=== PATIENT | female | born 1960 | race Caucasian/White ===

== ENCOUNTER 2019-06-29 18:10 | Inpatient (IN) | payer OTHER ==
[~2019-06-29] VITALS: Ht 157.5 cm; Wt 70.9 kg
[~2019-06-29 18:10] MED LIST: ADVAIR 250-501 EACH INH; DUONEB 2.5-0.5 M3 ML INH; FLEXERIL PO; HYDROCODON-ACE1 EAC5; HYDROCODON-ACE1 EAC8; NICOTINE TRANSD21 M1 TRANSDERM; NORCO 10-325 T1 EACH PO; OXYCODONE HCL15 MG PO; OXYCONTIN20 M1 PO; OXYCONTIN20 MG; PERCOCET 5-3251 EACH PO; PHENERGAN 25 MG25 M1 PO; PREDNISONE 20 M20 M1 PO; PREDNISONE 20 M20 MG PO; VENTOLIN HFA 1818 GM INH; ZPAK PO
--- NOTE | 2019-06-29 20:06 | NUR ---
ARRIVES TO FLOOR VIA CART ACCOMPNIED BY [facility] A 59 YEAR OLD FEMALE. ARRIVES FROM [facility] WITH REPORTED RECENT HX OF OPIATE ABUSE AND RECENT CVA-MENTAL STATUS CHANGES INCLUDING INCREASED CONFUSION,IMPAIRED IMPULSE CONTROL AND AGITATION-INTERMITENTLY UNCOOPERATIVE AND COMBATIVE WITH CARES ALTERNATING WITH EPISODES OF SOMULENCE. PT IS ALERT AND ORIENTED TO PERSON AND PLACE ON ADMIT-IDENTIFIES DATE JULY 03 BUT IS AWARE IT IS FRIDAY. RESPONSES AT TIMES RELEVENT TO QUESTIONS ASKED AND AT TIMES CONVERSATION IS CIRCUMSTANTIAL AND DISORGANIZED. SPEECH MILDLY PRESSURED AND SLURRED. ORIENTED TO ROOM AND UNIT, VS OBTAINED AND BP 142/83 P-94 TEMP 98.2. NO NOTED SKIN BREAKDOWN-SOME BRUSING TO FOREARMS.ANTICUBITAL AREA BILAT WHICH APPEAR TO BE OLD IV SITES. FULL SET DENTURES. 02 SAT 98 PERCENT ON RA. DAUGHTER NATALIA CASTREJON CONTACTED AND CONSENTS OBTAINED VIA PHONE-INFORMATION RE UNIT SCHEDULE AND VISITING HOURS WELL CONFIDENTIALITY CODE PROVIDED. PT DENIES SI/SH/HI-LABILE MOOD-TEARFUL X1 DURING ADMIT INTERVIEW. CONTACTED FOR ADMIT ORDERS. PT DENIES PAIN/DISCOMFORT ON ADMIT.
[2019-06-29 20:15] VITALS: BP 140/73
[2019-06-30 00:41] VITALS: BP 140/73
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
--- NOTE | 2019-06-30 04:24 | NUR ---
PATIENT HAS BEEN UP ALL NIGHT. THE PATIENT HAS SPENT ALOT OF TIME IN THE DINING ROOM MOVING CHAIRS AND SCATTERING TRASH AND CUPS AROUND THE ROOM. SHE DID SIT FOR AWHILE WITH A MALE PEER WHO WAS UP AND THE LYNNE DOMINGUEZ HAS BEEN TRYING TO KEEP THEM ENGAGED IN CONVERSATION. PATIENT STANDS UP AND WALKS TO DIFFERENT CHAIRS IN THE ROOM AND SITS AND THEN GETS UP AGAIN AND MOVES ON. PATIENT WAS GIVEN A COMB AND SHE DID COMB HER HAIR. PATIENT HAS BEEN DRIPPING WATER FROM HER MOUTH IT SOMETIMES RUNS OUT RIGHT SIDE OF MOUTH. CONTINUING TO MONITOR.
--- NOTE | 2019-06-30 06:29 | NUR ---
PATIENT ASKED FOR A SHOWER TODAY. SHE STARTED TAKING HER CLOTHES OFF IN THE HALLWAY AND HAD TO BE STOPPED. ANGELICA BATISTA ASSISTED HER IN WASHING HER HAIR AND PUTTING ON NEW CLOTHES. PATIENT IS UP IN THE DINING ROOM AT THIS TIME.
--- NOTE | 2019-06-30 14:38 | NUR ---
Care assumed of patient at 0715: Patient alert to name when it is called. Confused and forgetful. Patient has slurred and mumbled speech. Patient is able to write clearly and make wants/needs known. Patient has disrobed multiple times this shift and requires re-direction and assistance dressing. Patient has been incontinent of bowel and bladder this shift. Patient observed standing in her shower with dirty brief, clothing and linens in the shower with her. Patient needing multiple re-directions throughout the shift. Patient evaluated by . Diet changed to puree, honey thickened liquids, heart healthy. Patient continues to want to drink excessively. Patient spilling fluids on the floor, spitting out food. Pills were provided crushed due to coughing and difficulty swallowing. Chest x-ray was completed this AM. X-ray negative. CBC is ordered for 07/01/19. Multiple family members visited this AM. Only 2 family members allowed to visit at one time. Patient became more disoriented, unsteady, drooling by mid morning. Daughter reported concerns about patient being over medicated and having a poor reaction to prescribed Haldol. ALEX Cleary notified. Orders placed to d/c Haldol, start Risperdal, start Cogentin PRN for EPS. Patient provided first dose of Cogentin PRN. Patient was fed lunch. No s/s of pain or discomfort. Patient has been napping this afternoon.
--- NOTE | 2019-06-30 16:32 | NUR ---
SW met with pt briefly and she wanted Sw to talk with her instead.
[2019-06-30 16:34] VITALS: BP 150/96
--- NOTE | 2019-06-30 23:15 | NUR ---
PATIENT HAS BEEN UP AND WALKING AND VERY RESTLESS. PATIENT NOT TALKING AND WHEN SHE DOES IT IS NOT UNDERSTANDABLE. GAVE PATIENT PENCIL AND PAPER TO WRITE ON AND ANSWER QUESTIONS. SHE IS UNABLE TO PAY ATTENTION LONG ENOUGH TO DO THIS AT THIS TIME. HER HALDOL WAS DC'D TODAY AND SHE WAS STARTED ON RISPERIODONE 0.5MG AT HS. SHE HAD TAKEN THIS BEFORE SHE CAME IN. PATIENT ALSO GIVEN TYLENOL 650MG AN HOUR LATER FOR BACK PAIN. HELPED POSITION PATIENT IN BED TO TAKE PRESSURE OFF HER BACK. PATIENT NOT STAYING IN BED. OLANZAPINE 2.5MG PO GIVEN FOR AGGITATION. SHE WALKS THE YANG AND SITS DOWN ON THE FLOOR WHEN SHE GETS TIRED. AFTER SITTING AND TRYING TO HELP THE PATIENT 4 DIFFERENT TIMES TO STAY IN BED AND MAKE SURE SHE WAS COMFORTABLE, HAVE BROUGHT PATIENT OUT TO THE DINING ROOM. SHE IS LAYING ON COUCH AT THIS TIME. DON'T KNOW IF SHE JUST FEELS MORE COMFORTABLE WITH PEOPLE AROUND OR WHAT. HER VITAL SIGNS HAVE BEEN STABLE. PATIENT APPEARS MORE SEDATED SINCE TAKING THE RISPERIDONE. SHE HAS A STRAIGHT AHEAD STARE THAT DOES NOT SEEM TO BE CONCENTRATED ON ANYTHING AND SHE MOVES SLOWLY. SHE CONTINUES TO DROOL WITH LIQUIDS. SHE IS ON HONEY THICK CONSISTANCY AND PUREED DIET. PATIENT NEEDS SOMEONE TO FEED HER. PATIENT HAD ICECREAM FOR HS SNACK TONIGHT. SHE WAS GIVEN HONEY THICKENED WATER AND APPLE JUICE TONIGHT ALSO. PATIENT IS TAKING PILLS WHOLE AT THIS TIME. PATIENT IS BACK UP AND WALKING IN THE DINING ROOM. AUDITING CODER'S ARE HELPING HER TO SIT IN A CHAIR. DAUGHTER DALTON CALLED EARLIER THIS EVENING TO CHECK ON PATIENT. CONTINUING TO MONITOR.
[2019-07-01 00:40] VITALS: BP 132/80
--- NOTE | 2019-07-01 00:51 | NUR ---
PATIENT WITH C/O OF LEFT LEG/THIGH PAIN. APPEARS TO BE SHOOTING PAIN DOWN HER LEG FROM BACK. THE LEG WENT OUT ON HER 2X TONITE. GOT PATIENT BACK TO BED. ASSESSED THE LEG AND CHECKED SARIKA'S SIGN. NO INDICATION OF BLOOD CLOT. MASSAGED LEG AND ADJUSTED BED TO HE COMFORT LEVEL. PATIENT HAD JUST HAD TYLENOL. PATIENT VERY SLEEPY LOOKING. SHE DID HAVE SOME RELIEF AND IS SLEEPING AT THIS TIME. CONTINUING TO MONITOR.
--- NOTE | 2019-07-01 05:16 | NUR ---
PATIENT HAS SLEPT FOR ABOUT 3.5 HOURS. SHE DID NEED ASSISTANCE IN TOILETING AND DID NOT MAKE IT TO THE RESTROOM IN TIME WITH BANKING CENTER MANAGER'S AND VOIDED URINE ON THE FLOOR. WE CLEANED HER UP AND SHE WENT BACK TO SLEEP FOR AN HOUR AND IS NOW UP SITTING IN THE DINING ROOM. SHE IS ACTING AND LOOKING SEDATED. SHE IS UNSTEADY ON HER FEET AND IS ASSIST X 1-2 TONIGHT. PATIENT IS DENYING PAIN. SHE LIKES TO KEEP HER PLUM COLORED ROBE WITH HER WHEN SHE LEAVES THE ROOM. SHE HAD A LAB DRAW THIS AM FOR CBC. PATIENT IS CALM AND NOT UP WALKING AROUND. SHE HAS A NONINTENTIONAL STARE AND APPEARS NOT TO BE LISTENING WHEN YOU TALK BUT SHE IS JUST SLOW TO PROCESS AND REACT/RESPOND. PATIENT CALM AND COOPERATIVE AT THIS TIME.
[2019-07-01 05:30] LABS: HEMATOCRIT 43.1 % (37.0-47.0); HEMOGLOBIN 14.3 gm/dL (12.0-15.0); MCH 29.8 pg (26.0-34.0); MCHC 33.1 g/dL (28.0-37.0); RBC 4.78 mil/uL (4.20-5.00); RDW 14.5 % (10.5-14.5); WBC 11.9 thou/uL (4.0-11.0)
[2019-07-01 08:59] VITALS: BP 147/67
--- NOTE | 2019-07-01 12:35 | NUR ---
Assess due to notification of swallow difficulty in Treatment Team Meeting. Admit to [facility] unit with altered mental status. Hx cva's, htn, HLD, and chronic pain syndrome with +opiate use. ST has assessed and downgraded pt to puree, and honey thick liquid diet. Ensure pudding already ordered and pt eating these. Mod/severe oral/pharyngeal dysphagia noted and treatment with vital stim. Unknown wt hx, current BMI is adequate 28.7. Did note 1 glucose level of 184, no hx diabetes indicated. May want to assess few accuchecks. Otherwise low nutrition risk
--- NOTE | 2019-07-01 12:39 | NUR ---
Pt had BG 184, no hx diabetes indicated. Recommend trend few accucheck readings.
--- NOTE | 2019-07-01 13:29 | NUR ---
[place]'s daughter called; she was asking about [place] being discharged. The daughter is concerned about payment as [place] has medicare pending. She was wanting to know if [place] would be discharging today. I explained to her that the SW was sending out referrals. The daughter wanted to know "When will you here something?" I explained the SW would be in contact with her about placement.
--- NOTE | 2019-07-01 16:38 | NUR ---
Tiago spoke wiht g daughter in AM and PM. She requestd that this referral for SNF be sent to [facility]. This was completed and reported to Dr Landin and nursing staff. This d/c can happen as soon as there is placement.
--- NOTE | 2019-07-01 19:02 | NUR ---
PT ALERT AND ORIENTED TIMES THREE, WITH PERIODS OF CONFUSION. SLURRED SPEECH. TEARFUL SOME PART OF THE SHIFT. VSS, PT DENIES SI/HI/AV/HV. PT TOLERATES MEDS AND MEALS. PT UP AB KARISHMA WITH STEADY GAIT. PT ATTENDED SOME ONE GROUP THIS SHIFT.
[2019-07-01 21:06] VITALS: BP 153/90
--- NOTE | 2019-07-02 05:28 | NUR ---
The pt. was in the day area in the evening walking around others, not talking words. She was compliant with honey thickened liquids and purreed snack. She was compliant with HS medications which were crushed in snack. At 0115 she was awake and walking in the hallway and day area, and was given Melatonin 10 mg. po. It was effective as she slept well afterwards.
[2019-07-02 08:15] VITALS: BP 133/84
[2019-07-02 09:30] VITALS: BP 133/84
--- NOTE | 2019-07-02 14:59 | NUR ---
[facility] today, and [facility] denied placement, sent referral to [facility], [facility].
--- NOTE | 2019-07-02 16:14 | NUR ---
Assumed care of patient this am from casino shift manager. Patient was in the milieu in a wheel chair for assessment. Vital signs stable, breath sounds clear and diminished in the bases. Bowl sounds present. Patient speaks with a slurred speach and was concerned that the care she is recieving is not focused on the cva. Patients daughter called this am and expressed that she is working on finding a facility that would have care more focused to patients needs. Patient was very excited and happy to hear that her daughter had called and was very grateful to hear that she would be visiting today.
[2019-07-02 19:31] VITALS: BP 120/56
[2019-07-02 21:50] VITALS: BP 105/70
[2019-07-02 22:50] VITALS: BP 109/65
--- NOTE | 2019-07-02 23:31 | NUR ---
Nurse and DATA TYPIST responded to patient room due to bed alarm sounding. Patient was sitting at the foot of the bed. Patient stood with DATA TYPIST while she was attempting to turn bed alarm off. Staff attempted to assist and direct patient to sit down. Patient declined. Patient stood between bed A and bed B, holding on to the foot of the bed with her left hand, facing the wall. Patient had been pacing the unit, hallways and other patient rooms all evening. Patient's legs began to wobble and she fell backwards onto her buttock. Another nurse called to assist with assessment. Patient was assisted back to bed. Fall was witnessed and patient did not hit her head. Skin assessment completed. Small bruise observed to left buttock which appears old due to being yellow in color. Full ROM to all extremities. Pupils equal and reactive. Patient provided paper and pencil. Patient wrote that her "legs gave out, I'm so sorry". Education provided that she is not to get out of bed or walk without staff assist. Patient stated "I know, I know". Patient provided call zelaya and educated on usage. Unknown if patient understands this education and needs re-enforcement. Patient denies pain or discomfort. Vital signs assessed. Patient had taken her non-skid socks off when in bed prior to fall. Non-skid socks placed back on patient after fall. Bed alarm is on at a sensitive level. Dr. Landin and housekeeper notified of fall. Nurse called daughter to notify her of the fall. Daughter, NATALIA, did not answer the phone. Phone stated that voicemail was not able to be left. Will attempt to call daughter again in the AM. Patient is resting quietly in bed at this time. Will continue to monitor q12 minutes and PRN for safety.
[2019-07-03 01:16] VITALS: BP 109/65
--- NOTE | 2019-07-03 03:56 | NUR ---
PT RESTING QUIETLY AFTER EARLIER FALL. VSS. SLEPT WELL THROUGH THE NIGHT, W/O FURTHER INCIDENT.
[2019-07-03 07:55] VITALS: BP 139/72
[2019-07-03 16:54] VITALS: BP 144/82
--- NOTE | 2019-07-03 18:21 | NUR ---
PATIENT ORIENTED TO SELF AND COMBATIVE WITH STAFF AND FAMILY AT TIMES. PATIENT SISTER AND MOTHER HERE FOR AM VISITING HOURS. PATIENT VERY MESSY WHEN EATING WITH FOOD ON HERSELF AND SURROUNDINGS AND SOMETIMES USING HER HANDS TO EAT. PATIENT ON HONEY THICK LIQUIDS. PATIENT HAD EPISODE OF VOMITING AFTER LUNCH AND DR. COLINDRES NOTIFIED WITH NO NEW ORDERS.
[2019-07-03 19:58] VITALS: BP 109/54
--- NOTE | 2019-07-04 04:44 | NUR ---
1909-Report received from day shift nurse and care assumed. The pt. was in bed resting at the shift start, sleeping also. She awakened and was medication compliant, then at about 2200 she was noted to have had a large bowel movment diahhrea, brownish-yellow, inconinent. She had no c.o.pain voiced and was talkative then went back to sleep. She had no further episodes of diahhrea tonight. She shouted out and wanted to go to the bathroom she said. She was assisted to walk there and was continent of urine, large amount. She was coherantly talking at this time, asked about her cell-phone and said "can I have some honey-thick water", given such to drink and returned to sleeping rest of nite.
[2019-07-04 06:32] VITALS: BP 132/67
[2019-07-04 07:52] VITALS: BP 93/59
[2019-07-04 11:12] LABS: BE(vivo) 1.5 mmol/L (-2 to +3); HCO3 25.5 mmol/L (22.0-26.0); PO2 78.7 mmHg (80.0-100.0); pH 7.444 (7.360-7.450); sO2 96.1 % (92.0-98.0)
--- NOTE | 2019-07-04 11:58 | NUR ---
Had been up in dayroom for breakfast, she is alert but confused and dioriented this a.m., she is in a w/c and has attempted to go to room but continued to go in [place] due to her leaving one wheel locked, she is compliant with meds and meals, she took her meds crushed in applesauce, she went to bed for a while took her RT treatment, when went to visit her she was very out of it, she did not arouse with sternal rub, orders for ABG done, finally after Dr. Chin continued to rub her sternum she woke up and stated "damnit stop it" she then threw her pillow at him, her family is present and stated she has done this before and she "is probably having a stroke", Dr. Majano spoke with daughter and explained what may be going on, she was more comfortable and her mother was up in chair and they visited in dayroom. Pt. V/S are WNL, she is up currently in dayroom for lunch. Continue to monitor for behaviors and safety issues.
[2019-07-04 16:57] LABS: ALBUMIN 3.3 g/dL (3.4-5.0); CALCIUM 9.1 mg/dL (8.5-10.1); POTASSIUM 3.2 mmol/L (3.5-5.1); TOTAL BILIRUBIN 0.5 mg/dL (<0.1-1.0); TOTAL PROTEIN 6.6 g/dL (6.4-8.2)
[2019-07-04 19:53] VITALS: BP 116/61
--- NOTE | 2019-07-05 02:14 | NUR ---
PATIENT ASSESSED AND WAS SITTING OUT IN DINNING ROOM IN W/C ON ASSESSMENT. IS ALERT Z 1. REMAINS CONFUSED AND AGITATED.TAKES DIET AND FLUIDS WELL. MEDS CRUSHED AND DID TAKE ALL OF HS MEDS. NO DIARRHEA THIS SHIFT. PLACED TO BED AND SHE DID SLEEP FOR A WHILE THEN GOT UP OUT OF BED ANBD HAS BEED UP SINCE 2329. KEEPS GETTING OUT OF HER CHAIR. USED DISTRACTION FOR HER TO BEHAVE WHICH DID WORK FOR AWHILE. UP TO BATHROOM AND VOIDED WELL. TAKES HONEY THICKED FLUIDS WELL. POTASSIUM GIVEN THIS SHIFT A 1 TIME ORDER. SITS IN CHAIR IN DINNING ROOM AND WILL NOT STAY IN CHAIR, GETTING AGITATED AND DELUSIONAL, PRN ZYPREXA GIVEN IM IN RIGHT DELTOID WITH 3 PERSON HELP. SECUTRITY CALLED AND PUT PATIENT IN CHAIR IN DINNING ROOM. REMIANS CALM NOW. HAS A SKIN TEAR ON LEFT WRIST LOOKED LIKE IT WAS A TEAR THAT WAS REOPENED. UP WALKING THE HALLWAY WITH 3 PERSON ASSIST SO SHE WONT FALL. REMAINS AGITAED. WILL MONITOR BEHAVIOR.
--- NOTE | 2019-07-05 03:34 | NUR ---
PATIENT GOT SLEEPY IN DINNNING ROOM AFTER ZYPREXA IM GIVEN. TAKEN TO BED AND TUCKED IN FOR THE HS. REMAINS SLEEPING. NO FURTHER PROBLEMS NOTED WITH BEHAVIOR.
--- NOTE | 2019-07-05 04:40 | NUR ---
PATIENT AWAKE AND WAINTING UP TO DINNING ROOM. WALKED TO DINNING ROOM WITH STEADY GAIT.
--- NOTE | 2019-07-05 05:36 | NUR ---
PATIENT AWAKEN WANTING COFFEE. IS VERY COMBATIVE AND WALKED INTO DOOR JAM. DELUSIONAL ACTING AND AGITATED. PRN ZOILADON GIVEN FOR BEHAVIOR. REMAINS UNABLE TO DIRECT. SHE KEEPS GETTING OUT OF BED AND WALKING THE HALLS.
--- NOTE | 2019-07-05 05:42 | NUR ---
PATIENT GIVEN GEODON IM IN LEFT DELTOID. PATIENT SITTING ON COUCH. NO INJURIES FROM WALKING INTO DOOR JAM. GIVEN AT 0540 AM. WILL MONITOR BEHAVIOR.
[2019-07-05 09:29] VITALS: BP 159/78
[2019-07-05 11:00] VITALS: BP 144/78
--- NOTE | 2019-07-05 16:27 | NUR ---
TIAGO spoke with pt's granddaughter and referral was sent to [facility], [facility]. Tiago also asked that [employer] [facility] contact pt's dpoa to complete the Medicaid application.
--- NOTE | 2019-07-05 18:48 | NUR ---
PATIENT HAS NOT EATEN WELL TODAY AT ABOUT 25%. PATIENT DID NOT SLEEP WELL AND DID SLEEP FOR ABOUT 2 HOURS AFTER BREAKFAST TODAY. THE PET CARE ATTENDANT'S FULLY DRESSED PATIENT THIS MORNING AND WHEN I WENT IN TO GET HER FOR BREAKFAST SHE WAS SITTING NUDE ON HER FLOOR. REDRESSED HER AND WALKED HER TO DINING ROOM FOR BREAKFAST. PATIENT'S SPEECH HAS BEEN A LITTLE CLEARER TODAY SINCE RESTING. NEW ORDER TO INCREASE RISPERIDONE TO 2MG STARTING TONITE. SHE CONTINUES TO BE SEEN BY ST, OT, PT. PATIENT HAS BEEN UP AMBULATING. CALLED TO CHECK ON PATIENT TODAY. PATIENT STILL A FALL RISK AND DOES SIT DOWN IN THE YANG OR FLOOR IMPULSIVELY.
--- NOTE | 2019-07-05 19:55 | NUR ---
ASSUMED CARE @ 19:15 ON 07/05/19, AMBULATING IN DAY ROOM AND HALLWAY. FLAT AFFECT. SPEAKS HER NAME WHEN ASKED IN ASSESSMENT, BUT UNABLE TO UNDERSTAND HER CLEARLY. MAKES MESSES, GIVEN HONEY THICK BEVRAGE AND PROCEEDED TO SPILL IT. WILL CONTINUE TO MONITORQ 12 MINUTES FOR PATIENT SAFETY.
[2019-07-05 21:11] VITALS: BP 122/73
--- NOTE | 2019-07-05 22:45 | NUR ---
PATIENT NOT SLEEPING @ 2200, PROVIDED TRAZADONE 25MG AND TYLENOL 650 @ 2200. ESCORTED TO BEDROOM, TOILETED AND RETIRED TO BED. WILL CONTINUE TO MOITOR Q 12 MINUTES.
[2019-07-05 23:41] VITALS: BP 122/73
[2019-07-06 00:09] VITALS: BP 122/73
[2019-07-06 09:01] VITALS: BP 117/71
--- NOTE | 2019-07-06 11:27 | NUR ---
PATIENT SEEN BY DR. HUBBARD 07/05/19. PATIENT IS NOT AN APPROPRIATE CANDIDATE FOR ACUTE REHAB AT THIS TIME. IN ORDER TO BE CONSIDERED FOR ACUTE INPATIENT REHAB STAY PATIENT WILL NEED A DEFINITIVE HOME DISCHARGE PLAN AND WILL NEED TO PARTICIPATE CONSISTENTLY WITH THERAPIES. WILL CONTINUE TO FOLLOW.
--- NOTE | 2019-07-06 12:55 | NUR ---
PATIENT WAS IN BED WHEN CARE ASSUMED. PATIENT ASSISTED UP BY STAFF FOR BREAKFAST. PATIENT HAD BREAKSFT, CONSUME ABOUT 75%, ATE 100% LUNCH. PATIENT OBSERVED BY STAFF RESPONDING TO INTERNAL STIMULI, TALKS TO SELF, AND UNSEEN OTHERS. PATIENT SOMETIMES ACTING HOPELESS/HELPLESS, PATIENT IS CONFUSED, WANDERS, BUT EASILY REDIRETABLE. PATIENT DENIES SUICIDAL/HOMICIDAL IDEATION. PATIENT IS NOT ABLE TO RESPOND TO FURTHER ASSESSMENT QUESTIONS DUE TO COGNITIVE IMPAIREMENT. NO SIGN OF ACUTE DISTRESS NOTED AT THIS TIME, WILL MONITOR FOR SAFETY.
--- NOTE | 2019-07-06 13:04 | NUR ---
Date of Admission: 06/29/19 Date of Activity Therapy Assessment: 07/02/19 Activity Goal: 1 group per day Initial Goal: Increase awareness of sober leisure Weekly progress towards goal: Did not achieve goals Group participation level: Needs some assistance Behaviors observed: Patient has not consistently participated in groups d/t frequent napping. When awake, patient presents with lethargic behavior and does not clearly communicate. Patient does exhibit poor social boundaries and struggles to keep appropriate distance from peers and patients. Plan: No change towards goal
--- NOTE | 2019-07-06 13:36 | NUR ---
IVA contacted [facility] and asked if they would accedpt pt with pending Medicaid. Admissions said they were at their quota for the month for clients with pending Medicaid, and she may be eligible next month. SW team will continue to follow pt during her stay
--- NOTE | 2019-07-06 17:49 | NUR ---
IVA spoke with deborah in [facility] and they are willing to take pt home with HH. There will be 14/04 supervision. Iva is seeking [facility]. This d/c will likely be on TR 07/08. This was reported to Dr leahy and nursing staff.
[2019-07-06 21:24] VITALS: BP 131/60
[2019-07-06 22:12] VITALS: BP 131/60
--- NOTE | 2019-07-06 22:49 | NUR ---
PATIENT SITTING OUT IN THE DAY ROOM WHEN I ARRIVED ON SHIFT AT 1900. SHE WAS SITTING AT A TABLE THIS EVENING AND LOOKED DISCHEVELED. HER GOWN WAS DIRTY FROM DROPPING FOOD ON IT FROM HER EARLIER MEAL AND THEN SHE DROPPED SOME MORE ON IT AT HS SNACK TIME. SHE DID TAKE HER PILLS WHOLE WITH THICKENED WATER WITHOUT PROBLEM. SHE DOES PREFER TO TAKE THEM WHOLE THEN TO HAVE THEM CRUSHED WHEN ASKED. PATIENT HAD HER RESPIRATORY TREATMENT DONE. HER MEDS CAUSED HER TO BE DROWSY AND SHE HAD TO HAVE ASSISTANCE BACK TO HER ROOM TO GO TO BED. SHE WAS IN BED BY 0. SHE WAS ASSISTED TO THE BATHROOM AND INCONTINENCE CARE DONE BEFORE SHE WAS PLACED IN BED. BED IN LOW POSITION AND BED ALARM ON. PATIENT DENIES PAIN. SHE CURRENTLY IS SLEEPING. NO NEGATIVE BEHAVIORS SO FAR TONIGHT AND SHE HAS KEPT HER CLOTHES ON WHILE UP IN THE DAYROOM.
[2019-07-07 08:00] VITALS: BP 126/45
--- NOTE | 2019-07-07 08:00 | NUR ---
Assumed care of patient this am from machinist 2nd shift. Assessed patient this am prior to med pass. Patient has slurred speech but is coherent and understandable. Some facial drooping present. Patient is adherent with scheduled medications. Breath sounds clear and diminished in the bases. Bowel sounds present.
[2019-07-07 08:55] VITALS: BP 126/45
[2019-07-07 11:33] VITALS: BP 126/45
[2019-07-07] MEDS ORDERED: LIPITOR80 MG PO (11:52)
[2019-07-07] MEDS ORDERED: COREG6.25 MG PO (11:53)
[2019-07-07] MEDS ORDERED: ASPIRIN325 PO (11:55)
[2019-07-07] MEDS ORDERED: COZAAR 25 MG TA25 M1 PO (11:55)
[2019-07-07] MEDS ORDERED: RISPERDAL2 MG PO ×2 (11:57→11:58)
[2019-07-07] MEDS ORDERED: HYDROCHLOROTH12.5 M1 PO (11:59)
[2019-07-07] MEDS ORDERED: COLACE 100 MG100 MG PO (12:00)
[2019-07-07] MEDS ORDERED: PEPCID20 MG PO (12:01)
[2019-07-07] MEDS ORDERED: MELATONIN5 M1 PO (12:01)
[2019-07-07 13:12] VITALS: BP 126/45
--- NOTE | 2019-07-08 22:28 | D ---
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 The patient has a number of medical comorbidities, dysphagia, dysphasia, dysarthria, recurrent stroke, hypertension, presently controlled, chronic pain syndrome, chronic obstructive pulmonary disease, Tobacco use disorder. DISCHARGE PLAN: Discharging to her daughter Griselda's home. The patient also is being registered for home health by her family. Interestingly too the patient's brother, so her daughter's uncle has a successful [employer] company and is supplying financial assistance. He is buying a single level home for the patient and her daughter that will be available in about a month. DISCHARGE MEDICATIONS: As follows, atorvastatin calcium 80 mg p.o. at bedtime, carvedilol 6.25 mg p.o. b.i.d. with meals, losartan 25 mg p.o. daily, aspirin 325 mg p.o. daily, risperidone 2 mg p.o. at bedtime, 2 mg p.o. q.a.m. Told the daughter if the patient still is sedated at home, she cut the risperidone down to 1 mg twice a day, as it is being used for impulsivity. She may well be less impulsive at home. Hydrochlorothiazide 12.5 mg p.o. daily for hypertension, Depakote 100 mg p.o. b.i.d. for bowel motility, famotidine 20 mg p.o. daily for GERD, melatonin 10 mg p.o. at bedtime p.r.n. for insomnia. The patient should continue ipratropium bromide, albuterol nebulizers 3 mL inhaled t.i.d. A 30-day script was prescribed for her prescription medications. LABORATORY RESULTS: This admission; white count 11.9, otherwise within normal limits and this was on 07/01/2019. ABG was done on the patient ____ hospital and is not responding, on 07/04/2019 that was within normal limits ____. Chemistries on the showed sodium 132, potassium 3.2, chloride 96, bicarb 30, creatinine 1.0, estimated GFR 57, albumin 3.3. REASON FOR HOSPITAL ADMISSION: The patient was being impulsive, showing signs of persistent poor judgment, cognitive problems, [facility]. [address] [address] DISCHARGE SUMMARY Name: TEDDY BANKS Room #: 527B-B [facility] IN M.R.#: [id number] Admission: 06/29/19 Attend Phys: Efrain Landin, DO Discharge: 07/07/19 Date of : 60 Report #: [id number] HOSPITAL COURSE: The patient was admitted to Geriatric Psychiatry Unit and mild progress was made. The patient continued throughout the admission to do impulsive acts like ____ postures and we will try and put herself on the floor ____. I discussed with the brother extensively these were due to effects of her longstanding drugging as well as a stroke she had much more recently and that this is indeed quite a guarded to poor prognosis. PHYSICAL EXAMINATION: VITAL SIGNS: At time of discharge; temperature 36.9, pulse 106, respirations 18, BP 126/45. MUSCULOSKELETAL: She is ambulatory without a walker. Physical therapy cleared her the other day. MENTAL STATUS EXAMINATION: A well-developed, disheveled female wearing hospital gown. Attention limited. Concentration limited. Speech was slow, dysarthric. Mood and affect congruent, constricted. Denied suicidal or homicidal ideation. Memory noted to be impaired, insight impaired, judgment impaired. Fund of knowledge below average. PROGNOSIS: For this patient is guarded to possibly poor if she smokes or resumes any illicit drugs. <ELECTRONICALLY SIGNED> By: Efrain Landin DO 07/08/19 [id number] Efrain Landin DO /nt
--- NOTE | 2019-07-14 14:33 | HC ---
[facility] [place] [address] CONSULTATION Name: TEDDY BANKS Room #: 527B-B [facility] IN M.R.#: [id number] Admission: 06/29/19 Attend Phys: Efrain Landin DO Discharge: 07/07/19 Date of : 60 Report #: [id number] THIS REPORT FOR: //name// CC: Efrain Norman DATE OF SERVICE: 07/05/2019 HISTORY OF PRESENT ILLNESS: The patient is a 59-year-old female who was originally admitted to [facility], was diagnosed with acute renal failure secondary to drug overdose, was intubated, extubated. MRI revealed a left parietal occipital cerebrovascular accident, was noted to have an extension involving the contralateral right CVA per my review. She initially was admitted on 06/15/2019 and had a left parietal occipital region CVA and then extension with the right contralateral CVA was noted on 06/24/2019. The patient has dysphagia and dysarthria and is on a pureed diet with honey thickened liquids and has been receiving vital stimulation. Her course has been complicated by mood, agitation issues, insomnia and psychiatric admission included rule out major neurocognitive disorder, rule out opioid use disorder, and rule out stimulus use disorder. The working diagnosis is that of a major neurocognitive disorder. The patient was transferred from [place] to the Behavioral psychiatric unit at [facility]. Upon discussion with the nurses, they note that she does worse at night and only had 1.5 hours of sleep last night, received Zyprexa and Geodon and tends to be lethargic during the day. We are seeing her in rehabilitation medicine consultation. PAST MEDICAL HISTORY: Includes hypertension, hyperlipidemia, cardiomyopathy, chronic pain syndrome with chronic opiate usage recurrent CVA, tobacco abuse, COPD. MEDICATIONS: Please see the full medication listing. ALLERGIES: (FROM SUBOXONE). SOCIAL HISTORY: Per chart notes it was noted to be living with significant other up until the time of the overdose. There is noted to be an involved daughter. There is consideration for possibly returning to the daughter's home, although will need to go up steps. Case management is looking at options as well. In talking with the daughter for possible placement. REVIEW OF SYSTEMS: Difficult to obtain due to the patient's somnolence. PHYSICAL EXAMINATION: GENERAL: The patient is a 59-year-old white female who was seen in the main dining area. She was lying with her head on the table. She did arouse minimally verbal. [facility] [address] [place] [address] CONSULTATION Name: TEDDY BANKS Room #: 527B-B [facility] IN [facility].#: [id number] Admission: 06/29/19 Attend Phys: Efrain Landin, DO Discharge: 07/07/19 Date of : 60 Report #: [id number] NEUROLOGIC: Facies appeared symmetric. She was able to say a few short statements with some mild dysarthria. I had difficulty trying to get her to fix and follow. She was unable to tell me where she lived. I asked if she was wanting to go to stay with her daughter and she said she wanted to go home, appeared to increase her attention some when I told her she had had a couple of strokes. EXTREMITIES: She has functional range of motion of both upper and lower extremities. Strength is probably at least grade 3+ to 4-/5 although it was difficult to do actual volitional testing. DTRs were trace to 1. I was unable to assess sensation. Tone appeared intact. She has been min assist with sit to stand. Gait was 50 feet min assist without an assistive device. She remained relatively lethargic during the examination. ASSESSMENT: A 59-year-old white female with the following problem list: 1. Bilateral CVAs, left parietal occipital and contralateral right hemispheric. 2. Neurocognitive disorder. 3. Nocturnal agitation. 4. Dysphagia, on pureed honey. 5. Encephalopathy. 6. Drug abuse/overdose. 7. Chronic pain syndrome. 8. Hypertension. 9. Cardiomyopathy. 10. Chronic obstructive pulmonary disease. 11. History of polysubstance abuse. PLAN: In order for her to be considered for an acute inpatient rehabilitation stay. They would need to be a definitive home discharge plan after rehabilitation and she would also need to participate in cooperate consistently with the therapies. Note that there is an involved daughter and this will need to be further clarified as far as the daughter's ability for the patient to at least initially go home with her daughter. My understanding is that returning back to the current home situation is not being considered. The patient has tolerated basic therapies, although the agitation in the evening with daytime lethargy is a limiting factor. She is on thickened liquids. Noted to be honey thick with the need to monitor her hydration status as a potentially complicating factor as well. If she can further improve with involvement in therapies along with further termination of discharge home plan with the daughter, it could be reasonable to involve the [facility] depending upon how she does. We will follow along with you for now. Thank you for asking us to assist in this patient's care. <ELECTRONICALLY SIGNED> By: Andres Loyd MD 07/14/19 [id number] Andres Loyd MD /PMT
== END 2019-07-07 13:40 | disposition home or self-care (01) | DRG 884 ==
LOC: SBH 18:10
PROVIDERS: Hospitalist; ADMIT Psychiatry & Neurology Psychiatry
DX: F01.51 Vascular dementia, unspecified severity, with behavioral disturbance (principal); G93.41 Metabolic encephalopathy; I42.9 Cardiomyopathy, unspecified; F32.9 Major depressive disorder, single episode, unspecified; E78.5 Hyperlipidemia, unspecified; G89.4 Chronic pain syndrome; F17.210 Nicotine dependence, cigarettes, uncomplicated; J44.9 Chronic obstructive pulmonary disease, unspecified; R13.10 Dysphagia, unspecified; I50.9 Heart failure, unspecified; T50.991A Poisoning by other drugs, medicaments and biological substances, accidental (unintentional), initial encounter; I11.0 Hypertensive heart disease with heart failure; G47.00 Insomnia, unspecified; F41.9 Anxiety disorder, unspecified; Z79.51 Long term (current) use of inhaled steroids; Z79.899 Other long term (current) drug therapy; Z88.8 Allergy status to other drugs, medicaments and biological substances; Y92.89 Other specified places as the place of occurrence of the external cause; Z86.73 Personal history of transient ischemic attack (TIA), and cerebral infarction without residual deficits
CPT/HCPCS: 10880